=== PATIENT | male | born 1985 | race Caucasian/White ===

== ENCOUNTER 2017-11-26 11:35 | Emergency (ER) | payer OTHER | END 2017-11-26 15:06 | disposition home or self-care (01) | LOC: M ED 11:35 | DX: S61.211A Laceration without foreign body of left index finger without damage to nail, initial encounter (principal); W26.8XXA Contact with other sharp object(s), not elsewhere classified, initial encounter; Y92.098 Other place in other non-institutional residence as the place of occurrence of the external cause; I10 Essential (primary) hypertension; F17.220 Nicotine dependence, chewing tobacco, uncomplicated; Z79.899 Other long term (current) drug therapy | CPT/HCPCS: 12002 ==